=== PATIENT | male | born 1985 | race American Indian/Alaskan Native ===

== ENCOUNTER 2017-10-08 11:11 | Emergency (ER) | payer SELFPAY ==
[2017-10-08 11:23] VITALS: BP 130/90
[2017-10-08] MEDS ORDERED: TRIPLE ANTIBIOTIC TP ONE (12:26)
[2017-10-08] MEDS ORDERED: BOOSTRIX IM ONE (12:26)
[2017-10-08] MEDS ORDERED: XYLOCAINE 2% INFILTRATI ONE (12:26)
[2017-10-08] MEDS ORDERED: MOTRIN PO ONE (12:26)
--- NOTE | 2017-10-08 12:47 | Emergency Department Report ---
Chief Complaint: Wound/Laceration Stated Complaint: LEFT HAND LACERATION Time Seen by Provider: 10/08/17 12:17 - HPI History of Present Illness: The patient's 31-year-old male presents for evaluation of cut to the finger. 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 He is unsure of last known tetanus shot. - ROS Review of Systems: Constitutional: denies: fever ENT: denies: throat or neck pain Respiratory: denies: cough, shortness of breath Cardiovascular: denies: chest pain Gastrointestinal: denies: abdominal pain, nausea Genitourinary: denies: dysuria Musculoskeletal: reports finger lac denies: leg swelling - Exam Vital Signs: Vital Signs 10/08/17 10/08/17 11:20 12:34 Temperature 98.4 F Pulse Rate 83 Respiratory 16 18 Rate Blood Pressure 130/90 O2 Sat by Pulse 97 Oximetry Physical Exam: General: well-nourished, well-developed, no acute distress Head: Normocephalic, atraumatic Eyes: normal sclera Neck: trachea midline, neck supple, No neck stiffness, no cervical adenopathy Respiratory: Breath sounds equal bilaterally, no wheezing, rales, or rhonchi Cardio: S1 and S2 present, no murmurs, rubs, gallops, capillary refill is brisk Musc: 2cm superficial laceration to weir aspect of left 5th digit present No pitting edema Skin: No rash MSE screening note: Focused history and physical exam performed. Due to findings the following was ordered: ED Disposition for MSE Condition: Stable
--- NOTE | 2017-10-08 12:51 | Emergency Department Report ---
ED Laceration HPI - HPI Chief Complaint: Wound/Laceration Stated Complaint: LEFT HAND LACERATION Time Seen by Provider: 10/08/17 12:17 Tetanus Status: Not up to Date Laceration Symptoms: Yes Pain, No Foreign Body Sensation, No Numbness, No Weakness Other History: 31-year-old male presents with complaint of lacerations left pinky finger overlying the PIP joint. Patient states he was cutting sheet rock with a box car checker and accidentally slid over the middle of his finger. Patient denies injuries to any other body parts. Visible one-inch laceration to palmar aspect of the left proximal pinky finger. Overlying joints. Patient does not know his tetanus vaccine status. ED Review of Systems ROS: Stated complaint: LEFT HAND LACERATION Other details as noted in HPI Constitutional: denies: chills, fever Eyes: denies: eye pain, eye discharge, vision change ENT: denies: ear pain, throat pain Respiratory: denies: cough, shortness of breath, wheezing Cardiovascular: denies: chest pain, palpitations Endocrine: no symptoms reported Gastrointestinal: denies: abdominal pain, nausea, diarrhea Genitourinary: denies: urgency, dysuria Musculoskeletal: denies: back pain, joint swelling, arthralgia Skin: denies: rash, lesions Neurological: denies: headache, weakness, paresthesias Psychiatric: denies: anxiety, depression Hematological/Lymphatic: denies: easy bleeding, easy bruising ED Past Medical Hx - Past Medical History Previous Medical History?: No - Surgical History Past Surgical History?: No - Social History Smoking Status: Never Smoker Substance Use Type: Alcohol - Medications Home Medications: Home Medications Medication Instructions Recorded Confirmed Last Taken Type Bacitracin Zinc Oint [Antibiotic 1 applicatio TP BID #1 tube 10/08/17 Unknown Rx Oint] Cephalexin [Keflex] 500 mg PO Q12HR #14 cap 10/08/17 Unknown Rx Ibuprofen [Motrin] 800 mg PO Q8HR PRN #30 tablet 10/08/17 Unknown Rx Laceration Physical Exam - Exam General: Vital signs noted. No distress. Alert and acting appropriately. Wound Length (cm): 2 Laceration Location: Upper Extremity (left distal palmar aspect pinky finger) Laceration Exam: Yes Normal Distal CMS, No Foreign Body, No Exposed Tendon, Vessel, or Nerve, No Tendon Injury (range of motion left pinky PIP DIP fully intact against resistance. Distal capillary refill less than 1 second month distal sensation intact) ED Course Vital Signs 10/08/17 11:20 Temperature 98.4 F Pulse Rate 83 Respiratory 16 Rate Blood Pressure 130/90 O2 Sat by Pulse 97 Oximetry - Laceration /Wound Repair Left Distal Finger Wound Location: upper extremity (left distal pinky finger) Wound Length (cm): 2 Wound's Depth, Shape: superficial, linear Irrigated w/ Saline (ccs): 1,000 Anesthesia: 1% Lidocaine Volume Anesthetic (ccs): 2 Wound Debrided: minimal Wound Repaired With: sutures Suture Size/Type: 5:0, proline Number of Sutures: 3 Sterile Dressing Applied?: No (triple antibiotic ointment with Band-Aid then finger splint) Progress: Area infiltrated with lidocaine good anesthesia achieved. 3 Prolene sutures placed with good approximation of wound. Procedure tolerated well. Patient given a finger splint afterward to immobilize area to promote healing. ED Medical Decision Making - Medical Decision Making A/P: Left pinky finger Laceration 1-sutures to be removed in 7 days 2-tetanus updated today 3-Motrin when necessary, triple antibiotic ointment, short course Keflex 4- pt advised to return to the ED for any fevers chills pus drainage erythema at site of laceration Critical care attestation.: If time is entered above; I have spent that time in minutes in the direct care of this critically ill patient, excluding procedure time. ED Disposition Clinical Impression: Laceration of left little finger Qualifiers: Encounter type: initial encounter Damage to nail status: without damage Foreign body presence: without foreign body Qualified Code(s): S61.217A - Laceration without foreign body of left little finger without damage to nail, initial encounter Disposition: TO HOME OR SELFCARE Is pt being admited?: No Does the pt Need Aspirin: No Condition: Stable Instructions: Suture Care (ED), Laceration (ED), Finger Laceration (ED) Additional Instructions: Sutures to be removed in 7 days Prescriptions: Bacitracin Zinc Oint [Antibiotic Oint] 1 applicatio TP BID #1 tube Cephalexin [Keflex] 500 mg PO Q12HR #14 cap Ibuprofen [Motrin] 800 mg PO Q8HR PRN #30 tablet PRN Reason: Pain Referrals: [facility] [Outside] - 3-5 Days Forms: Work/School Release Form(ED) Time of Disposition: 12:54
== END 2017-10-08 13:11 | disposition home or self-care (01) ==
LOC: ED 11:11
DX: S61.217A Laceration without foreign body of left little finger without damage to nail, initial encounter (principal); W26.8XXA Contact with other sharp object(s), not elsewhere classified, initial encounter; Y93.89 Activity, other specified; Y92.89 Other specified places as the place of occurrence of the external cause; Y99.8 Other external cause status
CPT/HCPCS: 90471; 90715; 96372; 99282; A6250